=== PATIENT | female | born 1975 | race Two or more races ===

== ENCOUNTER 2020-04-11 11:37 | Emergency (ER) | payer MEDICAID ==
[~2020-04-11] VITALS: Ht 152.4 cm; Wt 81.6 kg
[2020-04-11 11:48] VITALS: BP 130/81
--- NOTE | 2020-04-11 12:24 | NUR ---
COVID SWAB AND XRAY DONE
--- NOTE | 2020-04-11 12:57 | NUR ---
Patient discharged to home in stable condition. Written and verbal after care instructions given. Patient verbalizes understanding of instruction. Pt ambulatory with a steady gait
--- NOTE | 2020-04-13 04:37 | NUR ---
RECEIVED CALL FROM LAB REGARDING COVID RESULT. PT POSITIVE.
== END 2020-04-11 12:59 | disposition home or self-care (01) ==
LOC: ER 11:40
DX: U07.1 COVID-19 (principal); R05 Cough; R43.0 Anosmia
CPT/HCPCS: 71045; 99284; C9803; U0003

== ENCOUNTER 2020-04-17 21:37 | Emergency (ER) | payer MEDICAID ==
[~2020-04-17] VITALS: Ht 154.9 cm; Wt 99.8 kg
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
[2020-04-17] MEDS: IBUPROFEN 600 MG TABLET PO ONE (23:00)
[2020-04-17] MEDS ORDERED: IBUPROFEN 600 MG TABLET PO ONE (23:11)
--- NOTE | 2020-04-18 00:04 | NUR ---
Patient discharged to home in stable condition. Written and verbal after care instructions given. Patient verbalizes understanding of instruction. PT REC'D A RX FOR PAIN MEDICATION. VSS. NAD NOTED.
[2020-04-18 00:05] VITALS: BP 105/67
--- NOTE | 2020-04-18 00:05 | NUR ---
PT'S IS DRIVING PT HOME.
== END 2020-04-18 00:05 | disposition home or self-care (01) ==
LOC: ER 21:40
DX: M25.512 Pain in left shoulder (principal); M79.641 Pain in right hand; Y04.8XXA Assault by other bodily force, initial encounter; Y93.89 Activity, other specified; Y92.89 Other specified places as the place of occurrence of the external cause; Y99.8 Other external cause status
CPT/HCPCS: 73030-TC; 73130-TC

== ENCOUNTER 2020-06-06 07:50 | Emergency (ER) | payer MEDICAID ==
[~2020-06-06] VITALS: Ht 157.5 cm; Wt 84.4 kg
--- NOTE | 2020-06-06 08:05 | NUR ---
"Sinus congestion/dizzy-room moving since yesterday. COVID+2mos ago" Patient a/ox4, persian speaking, no distress noted. Ambulatory with steady gait, breathing even and unlabored.
[2020-06-06] MEDS ORDERED: ONDANSETRON HCL/PF 4 MG/2 ML VIAL ONE (08:09)
[2020-06-06] MEDS ORDERED: KETOROLAC TROMETHAMINE 15 MG/ML VIAL ONE (08:09)
--- NOTE | 2020-06-06 08:10 | NUR ---
Seen and evaluated by Dr. Pak
[2020-06-06 08:20] LABS: BASOPHILS % (AUTO) 0.3 % (0.0-2.0); EOSINOPHILS % (AUTO) 3.1 % (0.0-6.0); HEMATOCRIT 39 % (33-45); HEMOGLOBIN 12.5 g/dL (11.5-14.8); LYMPHOCYTES # (AUTO) 2.4 /CMM (0.8-4.8); LYMPHOCYTES % (AUTO) 24.1 % (20.0-44.0); MEAN CORPUSCULAR HGB CONC 32 g/dl (31.0-36.0); MEAN CORPUSCULAR VOLUME 85 fL (82-100); MONOCYTES # (AUTO) 0.5 /CMM (0.1-1.30); MONOCYTES % (AUTO) 5.3 % (2.0-12.0); NEUTROPHILS # (AUTO) 6.6 /CMM (1.8-8.9); NEUTROPHILS % (AUTO) 67.2 % (43.0-81.0); PLATELET COUNT (AUTO) 323 /CMM (150-450); RED BLOOD CELL COUNT(AUTO) 4.62 MIL/uL (4.0-5.2); WHITE BLOOD COUNT (AUTO) 9.8 K/uL (4.3-11.0)
--- NOTE | 2020-06-06 08:23 | NUR ---
IV inserted, blood drawn and sent to lab. Urine sample sent to lab.
[2020-06-06 08:25] LABS: APPEARANCE,URINE CLEAR (CLEAR); BILIRUBIN,URINE NEGATIVE (NEGATIVE); BLOOD, URINE NEGATIVE Ery/uL (NEGATIVE); COLOR,URINE YELLOW (YELLOW); KETONES,URINE NEGATIVE (NEGATIVE); LEUKOCYTE ESTERASE ,URINE NEGATIVE (NEGATIVE); NITRITE, URINE NEGATIVE (NEGATIVE); PROTEIN,URINE NEGATIVE (NEGATIVE); UGLUCOSE NEGATIVE (NEGATIVE); UROBILINOGEN,URINE 0.2 EU/dL (0.2)
[2020-06-06] MEDS ORDERED: IV NS 0.9% 1,000 ML BAG IV ONE (08:30)
[2020-06-06] MEDS ORDERED: KETOROLAC TROMETHAMINE INJ 30 MG/ML VIAL IV ONE (08:30)
[2020-06-06] MEDS ORDERED: ONDANSETRON HCL/PF 4 MG/2 ML VIAL IVP ONE (08:30)
[2020-06-06 09:01] LABS: CALCIUM, SERUM 8.9 mg/dL (8.5-10.1); CREATININE 0.9 mg/dL (0.6-1.3); POTASSIUM 3.4 mmol/L (3.5-5.1)
--- NOTE | 2020-06-06 09:30 | NUR ---
IV removed. Catheter intact and site benign. Pressure and 4x4 applied to site. No bleeding noted.
--- NOTE | 2020-06-06 09:31 | NUR ---
Patients dizziness has improved. Ambulatory with steady gait. VSS. Patient discharged to home in stable condition. Written and verbal after care instructions given. Patient verbalizes understanding of instruction. Instructed not to drive.
[2020-06-06 09:33] VITALS: BP 126/72
== END 2020-06-06 09:33 | disposition home or self-care (01) ==
LOC: ER 07:50
DX: R42 Dizziness and giddiness (principal); R11.0 Nausea
CPT/HCPCS: 36415; 80048; 81001; 84703; 85025; 96361; 96374; 96375; 99284; J1885; J2405; J7030; 81000-TC

== ENCOUNTER 2020-06-12 12:02 | Emergency (ER) | payer MEDICAID ==
[~2020-06-12] VITALS: Ht 160 cm; Wt 83.9 kg
[2020-06-12 12:10] VITALS: BP 121/49
== END 2020-06-12 13:07 | disposition home or self-care (01) ==
LOC: ER 12:03
DX: K21.9 Gastro-esophageal reflux disease without esophagitis (principal)
CPT/HCPCS: 71045-TC

== ENCOUNTER 2021-01-14 14:36 | Emergency (ER) | payer MEDICAID, OTHER ==
[~2021-01-14] VITALS: Ht 160 cm; Wt 83.9 kg
[2021-01-14 14:46] VITALS: BP 107/62
[2021-01-14] MEDS ORDERED: KETOROLAC TROMETHAMINE INJ 30 MG/ML VIAL ONE (14:56)
[2021-01-14] MEDS ORDERED: NAPR-1009 PO (14:58)
[2021-01-14] MEDS ORDERED: KETOROLAC TROMETHAMINE INJ 30 MG/ML VIAL IM ONE (15:00)
--- NOTE | 2021-01-14 15:08 | NUR ---
Patient discharged to home in stable condition. Written and verbal after care instructions given. Patient verbalizes understanding of instruction. Pt ambulatory with a steady gait
== END 2021-01-14 15:10 | disposition home or self-care (01) ==
LOC: ER 14:41
DX: M54.16 Radiculopathy, lumbar region (principal); M79.661 Pain in right lower leg; M54.5 Low back pain; Z79.899 Other long term (current) drug therapy
CPT/HCPCS: 96372; 99283; J1885

== ENCOUNTER 2021-05-27 06:14 | Inpatient (IN) | payer OTHER ==
[~2021-05-27] VITALS: Ht 157.5 cm; Wt 84.4 kg
[~2021-05-27 06:14] MED LIST: NAPR-1009 PO
--- NOTE | 2021-05-27 06:47 | NUR ---
Patient came to the er bed 16 bibself c/o left lower quadrant pain since last night. Patient is alert and oreinted X4. denies shortness of breath. Patient is connected to the monitor. Patient is changed into a gown.
[2021-05-27] MEDS ORDERED: ONDANSETRON HCL/PF 4 MG/2 ML VIAL ONE (06:57)
[2021-05-27] MEDS ORDERED: IV NS 0.9% 500 ML BAG IV ONE (07:00)
[2021-05-27] MEDS ORDERED: ONDANSETRON HCL/PF 4 MG/2 ML VIAL IVP ONE (07:00)
[2021-05-27] MEDS ORDERED: KETOROLAC TROMETHAMINE INJ 30 MG/ML VIAL IV ONE (07:00)
[2021-05-27 07:25] LABS: BASOPHILS % (AUTO) 0.1 % (0.0-2.0); HEMATOCRIT 35 % (33-45); HEMOGLOBIN 11.5 g/dL (11.5-14.8); LYMPHOCYTES # (AUTO) 2.2 K/uL (0.8-4.8); LYMPHOCYTES % (AUTO) 12.9 % (20.0-44.0); MEAN CORPUSCULAR HGB CONC 33 g/dl (31.0-36.0); MEAN CORPUSCULAR VOLUME 84 fL (82-100); MONOCYTES # (AUTO) 0.9 K/uL (0.1-1.30); MONOCYTES % (AUTO) 5.3 % (2.0-12.0); NEUTROPHILS # (AUTO) 14.2 K/uL (1.8-8.9); NEUTROPHILS % (AUTO) 81.7 % (43.0-81.0); PLATELET COUNT (AUTO) 363 K/uL (150-450); RED BLOOD CELL COUNT(AUTO) 4.21 MIL/uL (4.0-5.2); WHITE BLOOD COUNT (AUTO) 17.4 K/uL (4.3-11.0)
[2021-05-27 07:33] LABS: BILIRUBIN,URINE NEGATIVE (NEGATIVE); COLOR,URINE YELLOW (YELLOW); LEUKOCYTE ESTERASE ,URINE NEGATIVE (NEGATIVE); NITRITE, URINE NEGATIVE (NEGATIVE); PROTEIN,URINE NEGATIVE (NEGATIVE); UGLUCOSE NEGATIVE (NEGATIVE); UROBILINOGEN,URINE 0.2 EU/dL (0.2)
--- NOTE | 2021-05-27 07:55 | NUR ---
THE PATIENT IS TAKEN TO CT IN STABLE CONDITION
--- NOTE | 2021-05-27 08:02 | NUR ---
THE PATIENT IS BACK FROM CT
[2021-05-27] MEDS ORDERED: KETOROLAC TROMETHAMINE 15 MG/ML VIAL ONE (08:10)
--- NOTE | 2021-05-27 08:16 | NUR ---
PT MEDICATED ORDERED. SEE EMAR. VITALS UPDATED.
[2021-05-27 08:58] LABS: ALBUMIN 3.5 g/dL (3.4-5.0); BILIRUBIN,DIRECT 0.1 mg/dL (0.0-0.2); BILIRUBIN,TOTAL 0.4 mg/dL (0.2-1.0); CALCIUM, SERUM 8.8 mg/dL (8.5-10.1); CREATININE 0.9 mg/dL (0.6-1.3); POTASSIUM 3.8 mmol/L (3.5-5.1); TOTAL PROTEIN, SERUM 7.7 g/dL (6.4-8.2)
[2021-05-27] MEDS ORDERED: METRONIDAZOLE 500MG/ NS 100ML 500 MG in PREMIX 1 EA IV SCH (09:00)
[2021-05-27] MEDS ORDERED: PIPERACILLIN /TAZOBACTAM 3.375 G in IV D5W 50 ML IV ONE (09:00)
--- NOTE | 2021-05-27 09:14 | NUR ---
HOUSE SUP CALLED FOR BED,NO BED AT THIS TIME
[2021-05-27] MEDS ORDERED: METRONIDAZOLE 500MG/ NS 100ML 100 ML IV ONE (09:40)
[2021-05-27] MEDS ORDERED: ONDANSETRON HCL/PF 4 MG/2 ML VIAL IVP PRN (10:00)
[2021-05-27] MEDS ORDERED: Z GUARD REMEDY 2 OZ OINT TP PRN (10:00)
[2021-05-27] MEDS ORDERED: MAG HYDROX/AL HYDROX/SIMETH 30 ML UDC PO PRN (10:00)
--- NOTE | 2021-05-27 11:52 | NUR ---
VITALS UPDATED. PT RESTING IN BED. NO DISTRESS NOTED. KEPT COMFORTABLE.
--- NOTE | 2021-05-27 14:10 | NUR ---
CALLED HOSPITALIST, HE HAD SPOKEN TO DR. PANG [phone] PRIVIOUSLY AND WERE AWAITING LAB RESULTS. PT NOW STABLE AND CAN BE TRANSFER IF NEEDED. INFORMED ADMITTING AND CM ALMA WILL BE MADE AWARE [phone]
--- NOTE | 2021-05-27 15:21 | NUR ---
[facility]IL[facility] AT [facility] [phone] FAX IS: [phone] PLEASE SEND CLINICALS
--- NOTE | 2021-05-27 15:54 | NUR ---
PER COMPUTER TYPESETTER MARIE COMPUTER TYPESETTER [phone] EXT [phone] THE PATIENT IS ACCEPTED TO [facility] ROOM 2284-A CALL FOR REPORT [phone] TO ARRANGE TRANSPO WITH [facility] TEL [phone]
--- NOTE | 2021-05-27 16:36 | NUR ---
CALLED [facility] TEL [phone] ETA [phone] PER GRANT
--- NOTE | 2021-05-27 16:39 | NUR ---
CALLED ANNIE MARQUEZ [phone] EXT [phone] LEFT MSG ABOUT TRANSPORT ETA OF [phone]. PLEASE CALL US BACK.
--- NOTE | 2021-05-27 17:17 | NUR ---
CALLED [facility] [phone] GRANT STILL LOOKS LIKE EARLIEST [phone] SET UP TRANSPORT
--- NOTE | 2021-05-27 17:44 | NUR ---
ROOM 306-1
--- NOTE | 2021-05-27 17:52 | NUR ---
REPORT GIVEN TO HAILEE PATEL. PT AWAITING TRANSFER TO FLOOR.
--- NOTE | 2021-05-27 18:13 | NUR ---
RN NOTES PATIENT TRANSFERRED TO UNIT AT ROOM 306-1 VIA [facility], ACCOMPANIED BY 1 CHEMICAL PLANT TECHNICAL DIRECTOR. PATIENT ABLE TO AMBULATE TO BED W/O ASSISTANCE. NOTED W/ STEADY GAIT.
[2021-05-27 18:24] VITALS: BP 114/66
[2021-05-27] MEDS: PIPERACILLIN /TAZOBACTAM 3.375 G in IV D5W 50 ML IV SCH (18:46)
[2021-05-27] MEDS: MORPHINE SULFATE INJ 2 MG/ML DISP.SYRIN IV PRN ×2 (18:47→23:33)
[2021-05-27] MEDS: ENOXAPARIN SODIUM 40 MG/0.4 ML DISP.SYRIN SQ SCH (19:40)
--- NOTE | 2021-05-27 19:45 | NUR ---
MS/RN ADMITTING NOTE RECEIVED PATIENT RESTING IN BED. AWAKE, ALERT AND ORIENTED X 4. ABLE TO MAKE NEEDS KNOWN. PRIMARILY TUNISIAN SPEAKING BUT UNDERSTANDS CITIZEN OF [place] AND [place]. DENIES PAIN AT THIS TIME. ADMITTING DX IS ACUTE DIVERTICULITIS. PAST MEDICAL HX INCLUDES GERD AND . PATIENT HAS NO KNOWN ALLERGIES AND IS A FULL CODE. CONTINUES ON NPO STATUS WITH PATIENT AGREEABLE. IV ACCESS TO RIGHT AC #18G INTACT AND PATENT. CONTINUES ON IVF D5NS @75ML/HR. CONTINUES ON IV ABX. VS: BP 128/73 HR 58 RR 18 T 98.6 O2 SAT 97% ON ROOM AIR. PATIENT ORIENTED TO ROOM, CALL LIGHT AND UNIT. CALL LIGHT WITHIN REACH. ASPIRATION, FALL AND SAFETY PRECAUTIONS MAINTAINED. WILL CONTINUE TO MONITOR.
[2021-05-27] MEDS: METRONIDAZOLE 500MG/ NS 100ML 500 MG in PREMIX 1 EA IV SCH (20:50)
[2021-05-27 20:56] VITALS: BP 128/73
[2021-05-28] MEDS: PIPERACILLIN /TAZOBACTAM 3.375 G in IV D5W 50 ML IV SCH ×4 (00:04→17:33)
[2021-05-28] MEDS: METRONIDAZOLE 500MG/ NS 100ML 500 MG in PREMIX 1 EA IV SCH ×3 (04:45→21:32)
[2021-05-28 06:05] LABS: BASOPHILS % (AUTO) 0.2 % (0.0-2.0); EOSINOPHILS % (AUTO) 0.1 % (0.0-6.0); HEMATOCRIT 33 % (33-45); HEMOGLOBIN 10.8 g/dL (11.5-14.8); LYMPHOCYTES # (AUTO) 1.8 K/uL (0.8-4.8); LYMPHOCYTES % (AUTO) 14.6 % (20.0-44.0); MEAN CORPUSCULAR HGB CONC 33 g/dl (31.0-36.0); MEAN CORPUSCULAR VOLUME 84 fL (82-100); MONOCYTES # (AUTO) 0.8 K/uL (0.1-1.30); MONOCYTES % (AUTO) 6.5 % (2.0-12.0); NEUTROPHILS # (AUTO) 9.9 K/uL (1.8-8.9); NEUTROPHILS % (AUTO) 78.6 % (43.0-81.0); PLATELET COUNT (AUTO) 321 K/uL (150-450); RED BLOOD CELL COUNT(AUTO) 3.92 MIL/uL (4.0-5.2); WHITE BLOOD COUNT (AUTO) 12.6 K/uL (4.3-11.0)
--- NOTE | 2021-05-28 06:10 | NUR ---
MS/RN CLOSING NOTE PATIENT CURRENTLY SLEEPING IN BED. ALERT AND ORIENTED X 4. ABLE TO MAKE NEEDS KNOWN. DENIES PAIN AT THIS TIME. CONTINUES ON ROOM AIR WITH NO S/SX OF RESPIRATORY DISTRESS NOTED. IV ACCESS TO RIGHT AC #18G INTACT AND PATENT. CONTINUES ON IVF D5NS @ 75ML/HR. CONTINUES ON IV ABX. DENIES NAUSEA AT THIS TIME. CONTINUES ON NPO STATUS. CALL LIGHT WITHIN REACH. ASPIRATION, FALL AND SAFETY PRECAUTIONS MAINTAINED. WILL ENDORSE PLAN OF CARE TO ONCOMING SHIFT.
[2021-05-28 06:36] LABS: CALCIUM, SERUM 8.3 mg/dL (8.5-10.1); CREATININE 0.8 mg/dL (0.6-1.3); MAGNESIUM 2.4 mg/dL (1.8-2.4); PHOSPHORUS 3.6 mg/dL (2.5-4.9)
[2021-05-28] MEDS: IV D5/ 0.9% NACL 1,000 ML IV PRN (06:37)
[2021-05-28 06:53] LABS: THYROID STIMULATING HORMONE 2.283 uIU/mL (0.358-3.74)
--- NOTE | 2021-05-28 07:30 | NUR ---
MS/RN OPENING NOTES RECEIVED PATIENT AWAKE ON BED, ALERT AND ORIENTED X 4. ABLE TO MAKE NEEDS KNOWN. DENIES PAIN AT THIS TIME. CONTINUES ON ROOM AIR WITH NO S/SX OF RESPIRATORY DISTRESS NOTED. IV ACCESS TO RIGHT AC #18G INTACT AND PATENT. CONTINUES ON IVF D5NS @ 75ML/HR. DENIES NAUSEA AT THIS TIME. ON NPO STATUS. CALL LIGHT WITHIN REACH. ASPIRATION, FALL AND SAFETY PRECAUTIONS MAINTAINED. WILL CONTINUE TO MONITOR.
[2021-05-28 08:37] VITALS: BP 102/70
[2021-05-28] MEDS: PANTOPRAZOLE 40 MG VIAL IV SCH (10:08)
[2021-05-28 17:07] VITALS: BP 137/68
--- NOTE | 2021-05-28 18:34 | NUR ---
MS/RN CLOSING NOTE PATIENT CURRENTLY IS AWAKE ON BED. ALERT AND ORIENTED X 4. ABLE TO MAKE NEEDS KNOWN. DENIES PAIN AT THIS TIME. CONTINUES ON ROOM AIR WITH NO S/SX OF RESPIRATORY DISTRESS NOTED. IV ACCESS TO RIGHT AC #18G INTACT AND PATENT. CONTINUES ON IVF D5NS @ 75ML/HR. ON CLEAR LIQUIDS STATUS. CALL LIGHT WITHIN REACH. BED ON LOWEST, LOCKED POSITION. ASPIRATION, FALL AND SAFETY PRECAUTIONS MAINTAINED. WILL ENDORSE PLAN OF CARE TO SALVAGE REPAIRER.
--- NOTE | 2021-05-28 19:55 | NUR ---
MS RN OPENING NOTE Patient is A&Ox4. at bedside. IV patent and intact -IVF infusing at 75cc/hr. Denies pain at this time. Tolerating clear liquids well. No signs of distress. Patient is able to make needs known. Will continue to monitor.
[2021-05-28 20:00] VITALS: BP 122/72
[2021-05-28] MEDS: ENOXAPARIN SODIUM 40 MG/0.4 ML DISP.SYRIN SQ SCH (21:34)
[2021-05-29] MEDS: PIPERACILLIN /TAZOBACTAM 3.375 G in IV D5W 50 ML IV SCH ×3 (00:43→12:20)
[2021-05-29] MEDS: IV D5/ 0.9% NACL 1,000 ML IV PRN (03:34)
[2021-05-29] MEDS: METRONIDAZOLE 500MG/ NS 100ML 500 MG in PREMIX 1 EA IV SCH (05:30)
--- NOTE | 2021-05-29 06:26 | NUR ---
Patient A&Ox4. Patient had 1 episode of chills though oral temperature was 98.4. Heater in room turmed on and warm blanket provided. Tolerating IV ABX well no side effects. Tolerating clear liquids well. RAC #18G patent, intact, and infusing IVF. Patient is able to make needs known. no other complaints. Denies abdominal pain throughout night.
[2021-05-29 06:50] LABS: BASOPHILS % (AUTO) 0.3 % (0.0-2.0); EOSINOPHILS % (AUTO) 0.3 % (0.0-6.0); HEMATOCRIT 34 % (33-45); LYMPHOCYTES # (AUTO) 2.4 K/uL (0.8-4.8); MEAN CORPUSCULAR HGB CONC 32 g/dl (31.0-36.0); MEAN CORPUSCULAR VOLUME 84 fL (82-100); MONOCYTES # (AUTO) 0.8 K/uL (0.1-1.30); MONOCYTES % (AUTO) 7.1 % (2.0-12.0); NEUTROPHILS # (AUTO) 8.6 K/uL (1.8-8.9); NEUTROPHILS % (AUTO) 72.3 % (43.0-81.0); PLATELET COUNT (AUTO) 329 K/uL (150-450); RED BLOOD CELL COUNT(AUTO) 4.06 MIL/uL (4.0-5.2); WHITE BLOOD COUNT (AUTO) 11.9 K/uL (4.3-11.0)
[2021-05-29 07:53] VITALS: BP 123/81
--- NOTE | 2021-05-29 08:05 | NUR ---
MS/RN OPENING NOTES RECEIVED PATIENT AWAKE ON BED, ALERT AND ORIENTED X 4. ABLE TO MAKE NEEDS KNOWN. DENIES PAIN AT THIS TIME. CONTINUES ON ROOM AIR WITH NO S/SX OF RESPIRATORY DISTRESS NOTED. IV ACCESS TO RIGHT AC #18G INTACT AND PATENT. CONTINUES ON IVF D5NS @ 75ML/HR. DENIES NAUSEA AT THIS TIME. SAFETY PRECAUTIONS MAINTAINED: BED LOCKED ON LOWEST POSITION, SIDE RAILS UPX2, CALL LIGHT AND TABLE WITHIN REACH. WILL CONTINUE TO MONITOR PATIENT.
[2021-05-29 08:54] LABS: CALCIUM, SERUM 8.2 mg/dL (8.5-10.1); CREATININE 0.9 mg/dL (0.6-1.3); POTASSIUM 3.8 mmol/L (3.5-5.1)
[2021-05-29] MEDS: PANTOPRAZOLE 40 MG VIAL IV SCH (09:49)
[2021-05-29] MEDS ORDERED: METRONIDAZOLE 500 MG TABLET PO SCH (13:00)
[2021-05-29 16:00] VITALS: BP 130/87
[2021-05-29] MEDS ORDERED: CIPR-262 PO (16:56)
[2021-05-29] MEDS ORDERED: ONDA4TAB5 PO (16:56)
[2021-05-29] MEDS ORDERED: METR-147 PO (16:56)
[2021-05-29] MEDS ORDERED: HYDR-3972 PO (16:56)
--- NOTE | 2021-05-29 19:31 | NUR ---
MS/RN CLOSING NOTES PATIENT IS MEDICALLY STABLE AND MD ORDERED DISCHARGE TO HOME. PATIENT AWAKE ON BED, ALERT AND ORIENTED X 4. ABLE TO MAKE NEEDS KNOWN. DENIES PAIN AT THIS TIME. CONTINUES ON ROOM AIR WITH NO S/SX OF RESPIRATORY DISTRESS NOTED. IV ACCESS TO RIGHT AC #18G INTACT AND PATENT. CONTINUES ON IVF D5NS @ 75ML/HR. DENIES NAUSEA AT THIS TIME. SAFETY PRECAUTIONS MAINTAINED: BED LOCKED ON LOWEST POSITION, SIDE RAILS UPX2, CALL LIGHT AND TABLE WITHIN REACH. WILL ENDORSE TO THE NEXT SHIFT TO PROCESS DISCHARGE.
[2021-05-29 20:00] VITALS: BP 126/70
--- NOTE | 2021-05-29 20:43 | NUR ---
MS HEATING AND VENTILATING TENDER NOTE PATIENT A/OX4; ABLE TO MAKE NEEDS KNOWN, AMBULATORY. D/C IV ON RAC; DRESSING KEPT C/D/I; NO BLEEDING NOTED. PATIENT VERBALIZED UNDERSTANDING ON D/C INSTRUCTIONS. PATIENT SIGNED D/C AND PATIENT BELONGING FORMS. ALL BELONGINGS WITH PATIENT. VSS. PATIENT AWAITING FOR DR CRUZ FOR WORK; DR. NAYLOR RECOMMENDED 5 DAYS OFF FROM WORK. CHARGE NURSE MALCOLM AWARE; WILL ENDORSE TO AM CHARGE NURSE TO ASK FOR DR CRUZ UNDER [place]. INSTRUCTED PATIENT TO CHIEF DATA OFFICER DR CRUZ TOMORROW. VERBALIZED UNDERSTANDING. PATIENT D/C WITH BY PRIVATE TRANSPORTATION HOME.
[2021-05-30] MEDS ORDERED: PANTOPRAZOLE 40 MG TABLET.DR PO SCH (07:30)
== END 2021-05-29 20:45 | disposition home or self-care (01) | DRG 244 ==
LOC: ER 06:28 → MED 17:58
PROVIDERS: ADMIT Nurse Practitioner Acute Care; ATTEND Nurse Practitioner Acute Care
DX: K57.20 Diverticulitis of large intestine with perforation and abscess without bleeding (principal); N17.0 Acute kidney failure with tubular necrosis; K29.70 Gastritis, unspecified, without bleeding; E66.9 Obesity, unspecified; Z68.33 Body mass index [BMI] 33.0-33.9, adult; Z20.822 Contact with and (suspected) exposure to COVID-19; Z98.891 History of uterine scar from previous surgery
CPT/HCPCS: 36415; 76856-TC; 80048-TC; 80061-TC; 80076-TC; 83605-TC; 83690-TC; 83735-TC; 84100-TC; 84443-TC; 84703-TC; 85025-TC; 87081-TC; A4216; C9113; C9803; G0378; J1650; J1885; J2270; J2405; J2543; J7040; J7042; J7060

== ENCOUNTER 2021-10-10 13:37 | Emergency (ER) | payer OTHER ==
[~2021-10-10] VITALS: Ht 149.9 cm; Wt 83.9 kg
[~2021-10-10 13:37] MED LIST changes: +CIPR-262 PO; +HYDR-3972 PO; +METR-147 PO; -NAPR-1009 PO; +ONDA4TAB5 PO
[2021-10-10 15:00] VITALS: BP 161/82
--- NOTE | 2021-10-10 15:45 | NUR ---
CALLED TO ROOM IN,NO ANSWER
--- NOTE | 2021-10-10 16:15 | NUR ---
CALLED TO ROOM IN,NO ANSWER
--- NOTE | 2021-10-10 17:00 | NUR ---
CALLED TO ROOM IN,NO ANSWER
== END 2021-10-10 17:01 | disposition left against medical advice (07) ==
LOC: ER 13:42
DX: R07.0 Pain in throat (principal); H92.09 Otalgia, unspecified ear

== ENCOUNTER 2022-01-21 12:18 | Emergency (ER) | payer OTHER ==
[~2022-01-21] VITALS: Ht 160 cm; Wt 83.9 kg
--- NOTE | 2022-01-21 12:36 | NUR ---
46 yrs female walking in from home c/o abdominale pain for 3 day abdomin soft none tender to touch
--- NOTE | 2022-01-21 13:06 | NUR ---
Trice vieira sent to lab resting at this time
--- NOTE | 2022-01-21 13:08 | NUR ---
blood drow by lab tach resting at this time
[2022-01-21 13:16] LABS: BASOPHILS # (AUTO) 0.1 K/uL (0.0-0.2); BASOPHILS % (AUTO) 0.8 % (0.0-2.0); EOSINOPHILS % (AUTO) 1.7 % (0.0-6.0); HEMATOCRIT 35 % (33-45); HEMOGLOBIN 11.3 g/dL (11.5-14.8); LYMPHOCYTES % (AUTO) 21.2 % (20.0-44.0); MEAN CORPUSCULAR HGB CONC 32 g/dl (31.0-36.0); MEAN CORPUSCULAR VOLUME 79 fL (82-100); MONOCYTES # (AUTO) 0.6 K/uL (0.1-1.30); NEUTROPHILS # (AUTO) 6.6 K/uL (1.8-8.9); NEUTROPHILS % (AUTO) 70.3 % (43.0-81.0); PLATELET COUNT (AUTO) 363 K/uL (150-450); RED BLOOD CELL COUNT(AUTO) 4.45 MIL/uL (4.0-5.2); WHITE BLOOD COUNT (AUTO) 9.5 K/uL (4.3-11.0)
[2022-01-21 13:33] LABS: ALBUMIN 3.3 g/dL (3.4-5.0); BILIRUBIN,DIRECT 0.1 mg/dL (0.0-0.2); BILIRUBIN,TOTAL 0.4 mg/dL (0.2-1.0); CALCIUM, SERUM 9.7 mg/dL (8.5-10.1); CREATININE 0.8 mg/dL (0.6-1.3); POTASSIUM 3.9 mmol/L (3.5-5.1)
[2022-01-21] MEDS ORDERED: ONDANSETRON HCL/PF 4 MG/2 ML VIAL ONE (13:45)
[2022-01-21] MEDS ORDERED: MORPHINE SULFATE INJ 4 MG/ML DISP.SYRIN ONE (13:45)
[2022-01-21 13:57] LABS: BILIRUBIN,URINE NEGATIVE (NEGATIVE); COLOR,URINE YELLOW (YELLOW); LEUKOCYTE ESTERASE ,URINE NEGATIVE (NEGATIVE); NITRITE, URINE NEGATIVE (NEGATIVE); PH,URINE 7.5 (5.0-8.0); PROTEIN,URINE NEGATIVE (NEGATIVE); UGLUCOSE NEGATIVE (NEGATIVE); UROBILINOGEN,URINE 0.2 EU/dL (0.2)
[2022-01-21] MEDS ORDERED: IV NS 0.9% 1,000 ML IV ONE (14:00)
[2022-01-21] MEDS ORDERED: ONDANSETRON HCL/PF - ER 4 MG/2 ML VIAL IV ONE (14:00)
[2022-01-21] MEDS ORDERED: MORPHINE SULFATE INJ 2 MG/ML DISP.SYRIN IV ONE (14:00)
[2022-01-21] MEDS ORDERED: IV NS 0.9% 250 ML IV ONE (14:49)
[2022-01-21] MEDS ORDERED: IOHEXOL-300 100 ML VIAL IV ONE (14:49)
--- NOTE | 2022-01-21 15:28 | NUR ---
DR. MUÑOZ SPEAKING WITH DR. RUFFIN.
--- NOTE | 2022-01-21 15:30 | NUR ---
to ct scan with contrast iv infused and patent
[2022-01-21] MEDS ORDERED: CIPR500T5 PO (15:48)
[2022-01-21] MEDS ORDERED: METR500T PO (15:48)
--- NOTE | 2022-01-21 17:00 | NUR ---
d/c instraction given to pt fully understood by aspanish speaking section housekeeper by ( christie ) from admiting
[2022-01-21 17:07] VITALS: BP 126/72
== END 2022-01-21 17:12 | disposition home or self-care (01) ==
LOC: ER 12:30
DX: K57.20 Diverticulitis of large intestine with perforation and abscess without bleeding (principal); K21.9 Gastro-esophageal reflux disease without esophagitis; Z91.018 Allergy to other foods; Z79.891 Long term (current) use of opiate analgesic; Z79.899 Other long term (current) drug therapy
CPT/HCPCS: 36415; 74177; 76856; 80048; 80076; 81003; 83690; 84703; 85025; 96361; 96374; 96375; 99285; J2270; J2405; J7030; J7050; Q9967

== ENCOUNTER 2022-03-22 12:57 | Emergency (ER) | payer OTHER ==
[~2022-03-22] VITALS: Ht 160 cm; Wt 79.4 kg
[~2022-03-22 12:57] MED LIST changes: +CIPR500T5 PO; +METR500T PO
--- NOTE | 2022-03-22 13:32 | NUR ---
labs and urine sent to labs
--- NOTE | 2022-03-22 13:32 | NUR ---
hep lock started
--- NOTE | 2022-03-22 13:33 | NUR ---
awaiting for Dr. Tai to see the patient
[2022-03-22] MEDS ORDERED: ONDANSETRON HCL/PF 4 MG/2 ML VIAL ONE (14:18)
[2022-03-22] MEDS ORDERED: KETOROLAC TROMETHAMINE 15 MG/ML VIAL ONE (14:18)
[2022-03-22 14:28] LABS: BASOPHILS % (AUTO) 0.3 % (0.0-2.0); EOSINOPHILS % (AUTO) 0.3 % (0.0-6.0); HEMATOCRIT 37 % (33-45); HEMOGLOBIN 11.8 g/dL (11.5-14.8); LYMPHOCYTES # (AUTO) 1.8 K/uL (0.8-4.8); MEAN CORPUSCULAR HGB CONC 32 g/dl (31.0-36.0); MEAN CORPUSCULAR VOLUME 80 fL (82-100); MONOCYTES # (AUTO) 1.1 K/uL (0.1-1.30); MONOCYTES % (AUTO) 8.1 % (2.0-12.0); NEUTROPHILS # (AUTO) 10.7 K/uL (1.8-8.9); NEUTROPHILS % (AUTO) 78.3 % (43.0-81.0); PLATELET COUNT (AUTO) 387 K/uL (150-450); RED BLOOD CELL COUNT(AUTO) 4.54 MIL/uL (4.0-5.2); WHITE BLOOD COUNT (AUTO) 13.6 K/uL (4.3-11.0)
[2022-03-22] MEDS ORDERED: IV NS 0.9% 1,000 ML BAG IV ONE (14:30)
[2022-03-22] MEDS ORDERED: KETOROLAC TROMETHAMINE INJ 30 MG/ML VIAL IV ONE (14:30)
[2022-03-22] MEDS ORDERED: ONDANSETRON HCL/PF 4 MG/2 ML VIAL IVP ONE (14:30)
[2022-03-22 14:49] LABS: BILIRUBIN,URINE NEGATIVE (NEGATIVE); COLOR,URINE YELLOW (YELLOW); LEUKOCYTE ESTERASE ,URINE NEGATIVE (NEGATIVE); NITRITE, URINE NEGATIVE (NEGATIVE); PH,URINE 7.5 (5.0-8.0); PROTEIN,URINE NEGATIVE (NEGATIVE); UGLUCOSE NEGATIVE (NEGATIVE); UROBILINOGEN,URINE 0.2 EU/dL (0.2)
[2022-03-22 14:53] LABS: ALBUMIN 3.2 g/dL (3.4-5.0); BILIRUBIN,DIRECT 0.1 mg/dL (0.0-0.2); BILIRUBIN,TOTAL 0.4 mg/dL (0.2-1.0); CALCIUM, SERUM 9.1 mg/dL (8.5-10.1); CREATININE 0.7 mg/dL (0.6-1.3); POTASSIUM 3.7 mmol/L (3.5-5.1); TOTAL PROTEIN, SERUM 8.2 g/dL (6.4-8.2)
[2022-03-22 15:09] LABS: BACTERIA,URINE None seen /HPF (None Seen); RBC,URINE 0-2 /HPF (0-2); SQUAMOUS EPITHELIAL CELL,UR Few /HPF (None Seen); WBC,URINE 0-2 /HPF (0-3)
[2022-03-22] MEDS ORDERED: CIPR500T5 PO (16:37)
[2022-03-22] MEDS ORDERED: SIME80TA15 PO (16:37)
[2022-03-22] MEDS ORDERED: DICY10CA37 PO (16:37)
[2022-03-22] MEDS ORDERED: METR500T PO (16:37)
[2022-03-22] MEDS ORDERED: IBUP-1957 PO (16:37)
--- NOTE | 2022-03-22 16:46 | NUR ---
Patient discharged to home in stable condition. Written and verbal after care instructions given. Patient verbalizes understanding of instruction.IV removed. Catheter intact and site benign. Pressure and 4x4 applied to site. No bleeding noted.
[2022-03-22 16:47] VITALS: BP 123/74
== END 2022-03-22 16:47 | disposition home or self-care (01) ==
LOC: ER 12:57
DX: K57.32 Diverticulitis of large intestine without perforation or abscess without bleeding (principal); K21.9 Gastro-esophageal reflux disease without esophagitis; Z91.018 Allergy to other foods; Z79.899 Other long term (current) drug therapy
CPT/HCPCS: 36415; 74176; 80048; 80076; 81001; 83690; 84703; 85025; 96361; 96374; 96375; 99284; J1885; J2405; J7030

== ENCOUNTER 2022-03-29 19:30 | Emergency (ER) | payer OTHER ==
[~2022-03-29 19:30] MED LIST changes: +DICY10CA37 PO; +IBUP-1957 PO; +SIME80TA15 PO
--- NOTE | 2022-03-29 21:04 | NUR ---
CAQLLED FOR TRIAGE, NO ANSWER
--- NOTE | 2022-03-29 21:11 | NUR ---
CALLED FOR TRIAGE. NO ANSWER
--- NOTE | 2022-03-29 21:30 | NUR ---
CALLED FOR TRIAGE, NO ANSWER
== END 2022-03-29 21:55 | disposition left against medical advice (07) ==
LOC: ER 19:30
DX: Z53.21 Procedure and treatment not carried out due to patient leaving prior to being seen by health care provider (principal)

== ENCOUNTER 2022-11-23 19:44 | Emergency (ER) | payer OTHER ==
[~2022-11-23] VITALS: Ht 160 cm; Wt 80.7 kg
[2022-11-23 20:15] VITALS: BP 129/75
[2022-11-23] MEDS ORDERED: KETOROLAC TROMETHAMINE INJ 30 MG/ML VIAL ONE (21:22)
[2022-11-23] MEDS ORDERED: CYCLOBENZAPRINE 10 MG TABLET ONE (21:23)
[2022-11-23] MEDS ORDERED: NAPR500T6 PO (21:24)
[2022-11-23] MEDS ORDERED: KETOROLAC TROMETHAMINE INJ 60 MG/2 ML VIAL IM ONE (21:30)
[2022-11-23] MEDS ORDERED: CYCLOBENZAPRINE 10 MG TABLET PO ONE (21:30)
--- NOTE | 2022-11-23 21:30 | NUR ---
Patient discharged to home in stable condition. Written and verbal after care instructions given. Patient verbalizes understanding of instruction.
== END 2022-11-23 21:31 | disposition home or self-care (01) ==
LOC: ER 19:46
DX: S39.012A Strain of muscle, fascia and tendon of lower back, initial encounter (principal); K21.9 Gastro-esophageal reflux disease without esophagitis; Z79.899 Other long term (current) drug therapy; Z91.018 Allergy to other foods; X58.XXXA Exposure to other specified factors, initial encounter; Y93.89 Activity, other specified; Y92.89 Other specified places as the place of occurrence of the external cause; Y99.8 Other external cause status
CPT/HCPCS: 99283; 96372; 72110; J1885

== ENCOUNTER 2023-03-15 09:58 | Emergency (ER) | payer OTHER ==
[~2023-03-15] VITALS: Ht 160 cm; Wt 83.9 kg
[~2023-03-15 09:58] MED LIST changes: +NAPR500T6 PO
[2023-03-15 10:08] VITALS: BP 131/82
[2023-03-15] MEDS ORDERED: PRED20TA PO (10:39)
[2023-03-15] MEDS ORDERED: FAMO-131 PO (10:39)
[2023-03-15] MEDS ORDERED: DIPH25CA83 PO (10:39)
--- NOTE | 2023-03-15 10:47 | NUR ---
Patient discharged to home in stable condition. Written and verbal after care instructions given. Patient verbalizes understanding of instruction.
== END 2023-03-15 10:46 | disposition home or self-care (01) ==
LOC: ER 10:01
DX: L50.0 Allergic urticaria (principal); K21.9 Gastro-esophageal reflux disease without esophagitis; Z91.018 Allergy to other foods; Z79.899 Other long term (current) drug therapy